=== PATIENT | female | born 1970 | race Two or more races ===

== ENCOUNTER 2020-07-15 09:25 | Outpatient (REF) | payer OTHER, SELFPAY ==
[2020-07-15 10:32] LABS: Cholesterol 150 mg/dL; HDL Cholesterol 54 mg/dL; LDL Cholesterol Calculated 80 mg/dl; Triglycerides 81 mg/dL
== END 2020-07-15 09:26 | disposition home or self-care (01) ==
LOC: HO.LAB 09:25
PROVIDERS: PCP Internal Medicine; Visit Provider Internal Medicine
DX: E78.00 Pure hypercholesterolemia, unspecified (principal); I10 Essential (primary) hypertension; Z91.14 Patient's other noncompliance with medication regimen
CPT/HCPCS: 80061

== ENCOUNTER 2020-08-23 12:00 | Outpatient (REF) | payer OTHER, SELFPAY ==
--- NOTE | 2020-08-23 | MM_ITS ---
EXAMINATION: MM SCREENING DIGITAL BREAST TOMOSYNTHESIS, BILATERAL CLINICAL INFORMATION: Screening. Asymptomatic. The lifetime risk of breast cancer based on the Tyrer-Cuzick Model is 11%. COMPARISON: Mammography: 01/01/2019, 12/19/2017 12/02/2016 TECHNIQUE: Digital breast tomosynthesis is performed in both the craniocaudal and mediolateral oblique views along with computer-aided detection (CAD). Synthesized 2D images are generated from the tomosynthesis. FINDINGS: There are scattered areas of fibroglandular density (ACR BI-RADS breast composition Category b). There are no significant masses, abnormal calcifications, or other abnormalities. The skin contours are smooth. No significant changes from prior studies. MM/MM tomosynthesis screening BI IMPRESSION: There are no significant changes from prior study. ASSESSMENT: BI-RADS 1: Negative RECOMMENDATION: Routine annual mammography screening. This patient's information was entered into a reminder system with a target due date for their next mammogram.
== END 2020-08-23 12:01 | disposition home or self-care (01) ==
LOC: HO.MAMMO 12:00
PROVIDERS: PCP Internal Medicine; Visit Provider Internal Medicine
DX: Z12.31 Encounter for screening mammogram for malignant neoplasm of breast (principal)
CPT/HCPCS: 77063; 77067

== ENCOUNTER 2021-05-22 10:50 | Outpatient (REF) | payer OTHER, SELFPAY ==
[2021-05-22 11:49] LABS: MANUAL DIFF FLAG NO
[2021-05-22 12:03] LABS: Basophils Percent Auto 0.3 % (0-2); Eosinophils Absolute Auto 0.2 X10*3/uL (0.0-0.4); Eosinophils Percent Auto 2.6 % (0-4); Hematocrit 40.5 % (37-47); Hemoglobin 13.3 g/dl (12.0-16.0); Imm Gran Abs Auto 0.03 X10*3/uL (0.00-0.03); Imm Gran Pct Auto 0.4 % (0.0-0.4); Lymphocytes Absolute Auto 1.8 X10*3/uL (1.2-4.9); Lymphocytes Percent Auto 26.2 % (20-40); Mean Corpuscular HGB Conc 32.8 g/dl (31.0-35.0); Mean Corpuscular Hemoglobin 29.2 pg (27.0-33.0); Mean Platelet Volume 9.3 fL (9.4-12.3); Monocytes Absolute Auto 0.6 X10*3/uL (0.1-1.2); Monocytes Percent Auto 8.8 % (2-11); Neutrophils Absolute Auto 4.2 X10*3/uL (2.0-8.3); Neutrophils Percent Auto 61.7 % (45-73); Platelet Count 340 X10*3/uL (160-400); Red Blood Count 4.55 X10*6/uL (4.20-5.50); Red Cell Distribution Width 14.6 % (11.0-16.0); White Blood Count 6.8 X10*3/uL (4.8-10.8)
[2021-05-22 12:11] LABS: Alanine Aminotransferase 26 U/L (0-31); Albumin Level 4.3 g/dL (3.5-5.0); Alkaline Phosphatase 59 U/L (39-117); Anion Gap 11 (12-20); Aspartate Amino Transferase 23 U/L (5-31); Blood Urea Nitrogen 10 mg/dL (9-16); Calcium 9.7 mg/dL (8.4-10.2); Carbon Dioxide 25 mmol/L (22-29); Chloride 104 mmol/L (96-108); Cholesterol 227 mg/dL; Estimated Glomerular Filt Rate > 60; Glucose Random 92 mg/dL (60-115); HDL Cholesterol 49 mg/dL; LDL Cholesterol Calculated 146 mg/dl; Potassium 4.6 mmol/L (3.3-5.1); Sodium 135 mmol/L (135-145); Total Protein 6.9 g/dL (6.5-8.0); Triglycerides 160 mg/dL
== END 2021-05-22 10:51 | disposition home or self-care (01) ==
LOC: HO.LAB 10:50
PROVIDERS: PCP Internal Medicine; Visit Provider Internal Medicine
DX: E78.00 Pure hypercholesterolemia, unspecified (principal); I10 Essential (primary) hypertension
CPT/HCPCS: 36415; 80053; 80061; 85025

== ENCOUNTER 2021-05-24 | Outpatient (REF) | payer OTHER, SELFPAY ==
[2021-06-01 20:52] LABS: HPV mRNA E6/E7 Not Detected (Not Detected)
== END 2021-05-24 00:01 | disposition home or self-care (01) ==
LOC: HO.LNP
PROVIDERS: Visit Provider Internal Medicine
DX: Z12.4 Encounter for screening for malignant neoplasm of cervix (principal)
CPT/HCPCS: 87624; 88142

== ENCOUNTER 2021-05-29 16:26 | Outpatient (REF) | payer OTHER, SELFPAY | END 2021-05-29 16:27 | disposition home or self-care (01) | LOC: HO.LNP 16:26 | PROVIDERS: Visit Provider Internal Medicine | DX: Z13.89 Encounter for screening for other disorder (principal) ==

== ENCOUNTER 2021-08-28 15:56 | Outpatient (REF) | payer OTHER, SELFPAY ==
--- NOTE | ~2021-08-28 | MM_ITS ---
EXAMINATION: MM SCREENING DIGITAL BREAST TOMOSYNTHESIS, BILATERAL CLINICAL INFORMATION: Screening. Asymptomatic. The lifetime risk of breast cancer based on the Tyrer-Cuzick Model is 10%. COMPARISON: Mammography: 08/23/2020, 01/01/2019, 12/19/2017 TECHNIQUE: Digital breast tomosynthesis is performed in both the craniocaudal and mediolateral oblique views along with computer-aided detection (CAD). Synthesized 2D images are generated from the tomosynthesis. Additional right CC and exaggerated left CC views are provided. FINDINGS: There are scattered areas of fibroglandular density (ACR BI-RADS breast composition Category b). There is fine fibronodular parenchymal pattern similar to prior studies. No interval mass or architectural abnormality or abnormal calcifications. No developing density. The axilla and skin contours are unremarkable. No significant changes. MM/MM tomosynthesis screening BI IMPRESSION: No mammographic evidence of malignancy. ASSESSMENT: BI-RADS 1: Negative RECOMMENDATION: Routine annual mammography screening. This patient's information was entered into a reminder system with a target due date for their next mammogram.
== END 2021-08-28 15:57 | disposition home or self-care (01) ==
LOC: HO.MAMMO 15:56
PROVIDERS: Visit Provider Internal Medicine
DX: Z12.31 Encounter for screening mammogram for malignant neoplasm of breast (principal)
CPT/HCPCS: 77063; 77067

== ENCOUNTER 2021-10-01 11:29 | Outpatient (REF) | payer OTHER, SELFPAY ==
[2021-10-01 11:50] LABS: MANUAL DIFF FLAG NO
[2021-10-01 12:18] LABS: Basophils Percent Auto 0.3 % (0-2); Eosinophils Absolute Auto 0.3 X10*3/uL (0.0-0.4); Eosinophils Percent Auto 4.2 % (0-4); Hematocrit 41.4 % (37.0-47.0); Hemoglobin 13.4 g/dl (12.0-16.0); Imm Gran Abs Auto 0.03 X10*3/uL (0.00-0.03); Imm Gran Pct Auto 0.4 % (0.0-0.4); Lymphocytes Absolute Auto 2.4 X10*3/uL (1.2-4.9); Lymphocytes Percent Auto 32.4 % (20-40); Mean Corpuscular HGB Conc 32.4 g/dl (31.0-35.0); Mean Corpuscular Hemoglobin 29.6 pg (27.0-33.0); Mean Corpuscular Volume 91.6 fL (80.0-98.0); Mean Platelet Volume 8.7 fL (9.4-12.3); Monocytes Absolute Auto 0.7 X10*3/uL (0.1-1.2); Monocytes Percent Auto 9.3 % (2-11); Neutrophils Percent Auto 53.4 % (45-73); Platelet Count 381 X10*3/uL (160-400); Red Blood Count 4.52 X10*6/uL (4.20-5.50); Red Cell Distribution Width 14.6 % (11.0-16.0); White Blood Count 7.4 X10*3/uL (4.8-10.8)
[2021-10-01 12:43] LABS: Alanine Aminotransferase 27 U/L (0-31); Albumin Level 4.3 g/dL (3.5-5.0); Alkaline Phosphatase 59 U/L (39-117); Anion Gap 13 (12-20); Aspartate Amino Transferase 21 U/L (5-31); Bilirubin Total 0.8 mg/dL (0.0-1.0); Blood Urea Nitrogen 16 mg/dL (9-16); Calcium 9.7 mg/dL (8.4-10.2); Carbon Dioxide 25 mmol/L (22-29); Chloride 103 mmol/L (96-108); Cholesterol 251 mg/dL; Estimated Glomerular Filt Rate > 60; Glucose Random 85 mg/dL (60-115); HDL Cholesterol 47 mg/dL; LDL Cholesterol Calculated 176 mg/dl; Potassium 4.6 mmol/L (3.3-5.1); Sodium 136 mmol/L (135-145); Total Protein 7.4 g/dL (6.5-8.0); Triglycerides 143 mg/dL
[2021-10-01 13:04] LABS: Thyroid Stimulating Hormone 2.22 uIU/mL (0.32-4.0)
== END 2021-10-01 11:30 | disposition home or self-care (01) ==
LOC: HO.LAB 11:29
PROVIDERS: PCP Internal Medicine; Visit Provider Internal Medicine
DX: Z00.00 Encounter for general adult medical examination without abnormal findings (principal); E78.00 Pure hypercholesterolemia, unspecified; I10 Essential (primary) hypertension
CPT/HCPCS: 36415; 80053; 80061; 84443; 85025

== ENCOUNTER 2021-10-09 07:04 | Day surgery (SDC) | payer OTHER, SELFPAY ==
--- NOTE | 2021-10-08 10:30 | HO.ANESPROP2 ---
Documented by User: Natalie Noel NP 10/08/21 10:33 HPI - Anesthesia Eval Consult details Narrative: 50yo F for Colonoscopy FOR[facility]LY [facility] Past Medical History Medical History (Updated 10/08/21 @ 09:19 by Maia Cameron, RN) Elevated cholesterol History of neuropathy HTN (hypertension) Surgical History Surgical History Hx of tubal ligation Social History Social History Second Hand Smoke Exposure: No Use of substances other than those prescribed or required for medical reasons: No Are you DNR?: No Advance Directives: No Advance Directives Information Provided: Yes Advance Directives on File: No Patient : No Meds Allergies Allergy/AdvReac Type Severity Reaction Status Date / Time No Known Allergies Allergy Verified 10/08/21 09:21 Home Medications Medication Instructions Recorded Confirmed Last Taken Type lisinopril 20 1 tab PO DAILY 10/08/21 10/08/21 10/09/21 History mg-hydrochlorothiazide 25 mg tablet rosuvastatin 40 mg tablet 1 tab PO DAILY 10/08/21 10/08/21 Unknown History Exam Exam Date and Time: October 08, 2021 1030 Pertinent Lab Results Pertinent Lab Results: Laboratory Tests 10/01/21 10/01/21 11:48 11:48 WBC 7.4 Hgb 13.4 Hct 41.4 Plt Count 381 Sodium 136 Potassium 4.6 Chloride 103 Carbon Dioxide 25 BUN 16 Creatinine 0.77 Assessment and Plan Assessment Anesthesia Assessment: Chart Reviewed Documented by User: Jenna Hernandez MD 10/09/21 08:21 [facility] Past Medical History Medical History (Updated 10/08/21 @ 09:19 by Maia Cameron RN) Elevated cholesterol History of neuropathy HTN (hypertension) Functional capacity: independent ambulation Patient : No Family History Family history of problems with anesthesia: No Surgical History Surgical History Hx of tubal ligation History of Problems with Anesthesia: No Social History Social History Second Hand Smoke Exposure: No Use of substances other than those prescribed or required for medical reasons: No Are you DNR?: No Advance Directives: No Advance Directives Information Provided: Yes Advance Directives on File: No Patient : No Meds Allergies Allergy/AdvReac Type Severity Reaction Status Date / Time No Known Allergies Allergy Verified 10/08/21 09:21 Home Medications Medication Instructions Recorded Confirmed Last Taken Type lisinopril 20 1 tab PO DAILY 10/08/21 10/08/21 10/09/21 History mg-hydrochlorothiazide 25 mg tablet rosuvastatin 40 mg tablet 1 tab PO DAILY 10/08/21 10/08/21 Unknown History Exam Airway Mallampati Class: II TM Dist: >3cm Neck ROM: Full Heart: RRR Lungs: CTA Assessment and Plan Final Anesthetic Review Family History of Problems with Anesthesia: No History of Problems with Anesthesia: No Final Preanesthetic Review: No Changes in Pt Med Stat, Meds/Allgs Chart Reviewed, Consent Obtained/Reviewed and Anes Risks/Benef Reviewed Patient Risk: Low Procedure Risk: Low Anesthetic Plan Anesthetic Plan: MAC: Disposition: Standard PACU
[2021-10-09 07:14] VITALS: BMI 37.0
[2021-10-09 07:23] VITALS: BP 131/78; PULSE 72; RESP 16; TEMP 36.4; O2SAT 98
[2021-10-09] MEDS: Lactated Ringers 1,000 ML 100 ML IVCONT (07:30)
--- NOTE | 2021-10-09 08:22 | MHC.SHP ---
Pre-Procedural Eval Section A Date of Service: 10/09/21 The patient is an INPATIENT: No Changes since office visit: No Cold of Flu in the past 2 weeks, No New Medical Problems, No Changes in Medication and No Patient answered all questions The History & Physical has been completed within 30 days and I have reviewed it.: Yes Section B Chief Complaint: screening Allergies: Allergies Allergy/AdvReac Type Severity Reaction Status Date / Time No Known Allergies Allergy Verified 10/08/21 09:21 Plan I have reviewed the history and physical and performed a pertinent physical examination on my patient. No changes have occurred unless specified.
--- NOTE | 2021-10-09 08:51 | PM.OP ---
Brief Operative Note Date of Service: 10/09/21 Pre-op diagnosis: screening Post-op diagnosis: same (colon polyps) Procedure: colonoscopy Surgeon: Johan Lacy Anesthesia: MAC Was an Communication Assistant used for this Procedure?: No Estimated blood loss (mL): 2 Pathology: other (polyps x2) Condition: stable Disposition: PACU
[2021-10-09 08:54] VITALS: BP 111/58; PULSE 71; RESP 16; TEMP 36.3; O2SAT 98
[2021-10-09 09:09] VITALS: BP 120/73; PULSE 55; RESP 18; TEMP 36.2; O2SAT 99
--- NOTE | 2021-10-09 09:10 | OP_ITS ---
SURGEON: Johan Lacy MD INDICATIONS: Colon cancer screening. PREOPERATIVE DIAGNOSIS: POSTOPERATIVE DIAGNOSIS: PROCEDURE PERFORMED: Colonoscopy to the terminal ileum with biopsy and snare polypectomy. ESTIMATED BLOOD LOSS: COMPLICATIONS: ANESTHESIA: ASSISTANTS: SPECIMENS: MEDICATIONS: Monitored anesthesia care. DESCRIPTION OF PROCEDURE: History and physical performed. The risks and benefits of the procedure were explained to the patient. An informed consent was obtained. The patient was placed in the left lateral decubitus position. A digital rectal exam was performed and was found to be normal. The Olympus pediatric video colonoscope was introduced into the rectum and advanced to the cecum without difficulty. The cecum was identified by transillumination, palpation, and identification of ileocecal valve. Examination was performed. The scope was removed. She tolerated the procedure well and was returned to recovery in stable condition. FINDINGS: The terminal ileum was examined and appeared normal. The visualized colonic mucosa was normal. The quality of prep was good. Two polyps were identified and removed with biopsy forceps and a snare. The 1st was located in the right colon at about 80 cm and was removed with a biopsy forceps. The 2nd was located in the sigmoid at 30 cm and measured approximately 8 mm. This was removed with a snare and recovered via suction. Internal hemorrhoids were noted on retroflexed examination. No other polyps were identified. IMPRESSION: Colon polyps. RECOMMENDATION: Follow up the biopsy results. MD ANGEL Roy/NURA / [id number]
--- NOTE | 2021-10-09 09:54 | HO.POSTANES ---
Post Anesthesia Evaluation Post Anesthesia Evaluation Vital Signs: Vital Signs Temp Pulse Resp BP Pulse Ox 10/09/21 09:09 97.1 F 55 18 120/73 99 10/09/21 08:54 97.3 F 71 16 111/58 L 98 10/09/21 07:23 97.6 F 72 16 131/78 98 Anesthesia: Monitored Mental Status: Awake Pain Control: Satisfactory Nausea/Vomiting: None Hydration: Adequate Anesthesia-Related Issues: No Anes. Related Issues
== END 2021-10-09 09:49 | disposition home or self-care (01) ==
PROVIDERS: PCP Internal Medicine; Visit Provider Internal Medicine Gastroenterology
PROC: 0DJD8ZZ Inspection of Lower Intestinal Tract, Via Natural or Artificial Opening Endoscopic (ICD-10-PCS; CPT 45378; principal; 2021-10-09 08:20)
DX: Z12.11 Encounter for screening for malignant neoplasm of colon (principal); K63.5 Polyp of colon; K64.8 Other hemorrhoids; I10 Essential (primary) hypertension; E78.00 Pure hypercholesterolemia, unspecified; G62.89 Other specified polyneuropathies; Z79.899 Other long term (current) drug therapy
CPT/HCPCS: 45385; 45380; 88305

== ENCOUNTER 2022-01-03 07:16 | Outpatient (REF) | payer OTHER, SELFPAY ==
[2022-01-03 07:59] LABS: Alanine Aminotransferase 29 U/L (0-31); Albumin Level 4.2 g/dL (3.5-5.0); Alkaline Phosphatase 58 U/L (39-117); Anion Gap 10 (12-20); Aspartate Amino Transferase 27 U/L (5-31); Bilirubin Total 0.8 mg/dL (0.0-1.0); Blood Urea Nitrogen 14 mg/dL (9-16); Calcium 9.8 mg/dL (8.4-10.2); Carbon Dioxide 28 mmol/L (22-29); Chloride 104 mmol/L (96-108); Cholesterol 148 mg/dL; Estimated Glomerular Filt Rate > 60; Glucose Random 94 mg/dL (60-115); HDL Cholesterol 51 mg/dL; LDL Cholesterol Calculated 64 mg/dl; Potassium 4.6 mmol/L (3.3-5.1); Sodium 137 mmol/L (135-145); Total Protein 7.1 g/dL (6.5-8.0); Triglycerides 166 mg/dL
== END 2022-01-03 07:17 | disposition home or self-care (01) ==
LOC: HO.LAB 07:16
PROVIDERS: PCP Internal Medicine; Visit Provider Internal Medicine
DX: E78.00 Pure hypercholesterolemia, unspecified (principal); I10 Essential (primary) hypertension; M79.18 Myalgia, other site
CPT/HCPCS: 36415; 80053; 80061

== ENCOUNTER 2022-09-13 13:23 | Outpatient (REF) | payer OTHER, SELFPAY ==
--- NOTE | ~2022-09-13 | MM_ITS ---
EXAMINATION: MM SCREENING DIGITAL BREAST TOMOSYNTHESIS, BILATERAL CLINICAL INFORMATION: Screening. Asymptomatic. The lifetime risk of breast cancer based on the Tyrer-Cuzick Model is 10%. COMPARISON: Mammography: 08/28/2021, 08/23/2020, 01/01/2019 TECHNIQUE: Digital breast tomosynthesis is performed in both the craniocaudal and mediolateral oblique views along with computer-aided detection (CAD). Synthesized 2D images are generated from the tomosynthesis. FINDINGS: There are scattered areas of fibroglandular density (ACR BI-RADS breast composition Category b). There is fine fibronodular parenchymal pattern similar to prior studies. There is no developing density or interval significant mass or architectural abnormality. The axilla and skin contours are unremarkable. No abnormal calcifications on the right. The left breast has new grouped calcifications mid upper outer quadrant, possibly fibroadenomatous change. Patient will be recalled for additional magnification views to fully characterize. MM/MM tomosynthesis screening BI IMPRESSION: Left: -New grouped calcifications mid upper outer quadrant. Right: -No mammographic evidence of malignancy. ASSESSMENT: BI-RADS 0: Incomplete - Need Additional Imaging Evaluation RECOMMENDATION: 1. Additional views of the left breast (magnification CC, magnification ML). 2. Radiology department staff will contact the patient for additional imaging. This patient's information was entered into a reminder system with a target due date for their next mammogram.
== END 2022-09-13 13:24 | disposition home or self-care (01) ==
LOC: HO.MAMMO 13:23
PROVIDERS: PCP Internal Medicine; Visit Provider Internal Medicine
DX: Z12.31 Encounter for screening mammogram for malignant neoplasm of breast (principal)
CPT/HCPCS: 77063; 77067

== ENCOUNTER 2022-09-19 13:42 | Outpatient (REF) | payer OTHER, SELFPAY ==
--- NOTE | ~2022-09-19 | MM_ITS ---
EXAMINATION: MM DIAGNOSTIC DIGITAL MAMMOGRAPHY, LEFT CLINICAL INFORMATION: Recall from screening for new grouped calcifications mid upper outer quadrant left breast. TC score 10%. COMPARISON: Mammography: 09/13/2022, 08/28/2021 TECHNIQUE: Digital mammography is performed in the following views: Magnification CC, magnification ML x2 FINDINGS: There are scattered areas of fibroglandular density (ACR BI-RADS breast composition Category b). The magnification views show tightly grouped round calcifications mid upper outer breast. These vary in size. No irregular shapes or ductal distribution. Results are discussed with the patient at time of visit. Calcifications are probably benign. Short interval follow-up left mammography is recommended to include magnification views. MM/MM added views LT IMPRESSION: -Probable benign grouped calcifications mid upper outer left breast. ASSESSMENT: BI-RADS 3: Probably Benign RECOMMENDATION: Diagnostic left mammography in 6 months. This patient's information was entered into a reminder system with a target due date for their next mammogram.
== END 2022-09-19 13:43 | disposition home or self-care (01) ==
LOC: HO.MAMMO 13:42
PROVIDERS: Visit Provider Internal Medicine
DX: R92.1 Mammographic calcification found on diagnostic imaging of breast (principal)
CPT/HCPCS: 77065

== ENCOUNTER 2023-01-13 07:14 | Outpatient (REF) | payer OTHER, SELFPAY ==
[2023-01-13 07:59] LABS: Hematocrit 40.8 % (37.0-47.0); Hemoglobin 13.3 g/dl (12.0-16.0); Mean Corpuscular HGB Conc 32.6 g/dl (31.0-35.0); Mean Corpuscular Hemoglobin 29.2 pg (27.0-33.0); Mean Corpuscular Volume 89.7 fL (80.0-98.0); Mean Platelet Volume 8.3 fL (9.4-12.3); Platelet Count 423 X10*3/uL (160-400); Red Blood Count 4.55 X10*6/uL (4.20-5.50); Red Cell Distribution Width 14.3 % (11.0-16.0); White Blood Count 10.3 X10*3/uL (4.8-10.8)
[2023-01-13 08:10] LABS: Estimated Average Glucose 111 mg/dL; Hemoglobin A1c % 5.5 %
[2023-01-13 08:29] LABS: SLIDE REVIEW MANUAL DIFF
[2023-01-13 08:41] LABS: Alanine Aminotransferase 28 U/L (0-31); Albumin Level 4.1 g/dL (3.5-5.0); Alkaline Phosphatase 71 U/L (39-117); Anion Gap 13 (12-20); Aspartate Amino Transferase 17 U/L (5-31); Bilirubin Total 0.7 mg/dL (0.0-1.0); Blood Urea Nitrogen 8 mg/dL (9-16); Calcium 9.6 mg/dL (8.4-10.2); Carbon Dioxide 26 mmol/L (22-29); Chloride 103 mmol/L (96-108); Cholesterol 128 mg/dL; Estimated Glomerular Filt Rate > 60; Glucose Random 96 mg/dL (60-115); HDL Cholesterol 37 mg/dL; LDL Cholesterol Calculated 68 mg/dl; Potassium 4.8 mmol/L (3.3-5.1); Sodium 137 mmol/L (135-145); Triglycerides 116 mg/dL
[2023-01-13 08:49] LABS: Atypical Lymph Absolute Manual 0.5 x10*3/uL; Atypical Lymphs Percent Manual 5 % (0-6); Band Neutrophils Percent 7 % (3-5); Basophils Abs Manual 0.1 X10*3/uL (0.0-0.2); Basophils Percent Manual 1 % (0-2); Blast Percent 1 %; Blastocytes Absolute 0.1 X10*3/uL; Eosinophils Absolute Manual 0.5 X10*3/uL (0.0-0.4); Eosinophils Percent Manual 5 % (0-4); Lymphocytes Percent Manual 19 % (20-40); Metamyelocytes Absolute 0.1 X10*3/uL; Metamyelocytes Percent 1 %; Monocytes Absolute Manual 0.2 X10*3/uL (0.1-1.2); Monocytes Percent Manual 2 % (2-11); Neutrophils Absolute Manual 6.8 X10*3/uL (2.0-8.3); Neutrophils Percent Manual 59 % (45-73)
[2023-01-13 09:08] LABS: RBC Morphology NORMAL
[2023-01-13 09:09] LABS: Platelet Estimate NORMAL (NORMAL)
[2023-01-13 09:10] LABS: Large Platelet PRESENT; Platelet Morphology Comment NOTED
== END 2023-01-13 07:15 | disposition home or self-care (01) ==
LOC: HO.LAB 07:14
PROVIDERS: PCP Internal Medicine; Visit Provider Internal Medicine
DX: Z00.00 Encounter for general adult medical examination without abnormal findings (principal); E78.00 Pure hypercholesterolemia, unspecified; N92.1 Excessive and frequent menstruation with irregular cycle; I10 Essential (primary) hypertension
CPT/HCPCS: 36415; 80053; 80061; 83036; 84443; 85007; 85025; 85027

== ENCOUNTER → 2023-02-24 10:26 | Outpatient (BNV) | payer OTHER, SELFPAY | PROVIDERS: PCP Internal Medicine; Visit Provider Internal Medicine Medical Oncology | DX: D75.839 Thrombocytosis, unspecified (principal) | CPT/HCPCS: 99203; 99213 ==

== ENCOUNTER 2023-04-21 12:55 | Outpatient (REF) | payer OTHER, SELFPAY ==
--- NOTE | ~2023-04-21 | MM_ITS ---
EXAMINATION: MM DIAGNOSTIC DIGITAL BREAST TOMOSYNTHESIS, LEFT CLINICAL INFORMATION: Evaluate calcifications upper outer left breast, middle one third. The lifetime risk of breast cancer based on the Tyrer-Cuzick Model is 10.6%. COMPARISON: Mammography: 09/13/2022, 08/28/2021, 08/23/2028. TECHNIQUE: Digital breast tomosynthesis is performed in both the craniocaudal and mediolateral oblique views along with computer-aided detection (CAD). Synthesized 2D images are generated from the tomosynthesis. In addition 2-D spot magnification CC and ML views of the left breast were performed. FINDINGS: There are scattered areas of fibroglandular density (ACR BI-RADS breast composition Category b). Grouped calcifications in the left breast, upper outer quadrant, middle one third, have become significantly more coarsened and round since the prior examination, and are consistent with dystrophic calcifications (fat necrosis, oil cysts). There has been no suspicious change. The overall somewhat nodular parenchymal pattern of the left breast is stable from numerous priors. No masses or areas of architectural distortion. Results are provided to the patient at time of visit by the technologist. MM/MM tomosynthesis diagnostic LT IMPRESSION: No mammographic evidence of malignancy. Calcifications upper outer left breast have become dystrophic in morphology and are benign. ASSESSMENT: BI-RADS BI-RADS 2 - Benign Findings RECOMMENDATION: 1 year F/U This patient's information was entered into a reminder system with a target due date for their next mammogram.
== END 2023-04-21 12:56 | disposition home or self-care (01) ==
LOC: HO.MAMMO 12:55
PROVIDERS: PCP Internal Medicine; Visit Provider Internal Medicine
DX: R92.1 Mammographic calcification found on diagnostic imaging of breast (principal)
CPT/HCPCS: 77061; 77065

== ENCOUNTER → 2023-04-21 13:00 | Outpatient (BNV) | payer OTHER, SELFPAY | PROVIDERS: PCP Internal Medicine; Visit Provider Radiology Diagnostic Radiology | DX: R92.1 Mammographic calcification found on diagnostic imaging of breast (principal) | CPT/HCPCS: 77061; 77065 ==

== ENCOUNTER 2023-07-14 07:04 | Outpatient (REF) | payer OTHER, SELFPAY ==
[2023-07-14 07:18] LABS: MANUAL DIFF FLAG NO
[2023-07-14 07:37] LABS: Basophils Percent Auto 0.5 % (0-2); Eosinophils Absolute Auto 0.2 X10*3/uL (0.0-0.4); Eosinophils Percent Auto 2.7 % (0-4); Hematocrit 42.7 % (37.0-47.0); Imm Gran Abs Auto 0.03 X10*3/uL (0.00-0.03); Imm Gran Pct Auto 0.4 % (0.0-0.4); Lymphocytes Absolute Auto 2.6 X10*3/uL (1.2-4.9); Mean Corpuscular HGB Conc 32.8 g/dl (31.0-35.0); Mean Corpuscular Hemoglobin 28.9 pg (27.0-33.0); Mean Corpuscular Volume 88.2 fL (80.0-98.0); Mean Platelet Volume 8.7 fL (9.4-12.3); Monocytes Absolute Auto 0.7 X10*3/uL (0.1-1.2); Monocytes Percent Auto 8.8 % (2-11); Neutrophils Absolute Auto 4.7 x10*3/uL (2.0-8.3); Neutrophils Percent Auto 56.6 % (45-73); Platelet Count 361 X10*3/uL (160-400); Red Blood Count 4.84 X10*6/uL (4.20-5.50); Red Cell Distribution Width 14.6 % (11.0-16.0); White Blood Count 8.3 X10*3/uL (4.8-10.8)
[2023-07-14 08:36] LABS: Alanine Aminotransferase 29 U/L (0-31); Albumin Level 4.4 g/dL (3.5-5.0); Alkaline Phosphatase 69 U/L (39-117); Anion Gap 13 (12-20); Aspartate Amino Transferase 24 U/L (5-31); Bilirubin Total 0.9 mg/dL (0.0-1.0); Blood Urea Nitrogen 13 mg/dL (9-16); Carbon Dioxide 27 mmol/L (22-29); Chloride 103 mmol/L (96-108); Estimated Glomerular Filt Rate > 60; Glucose Random 103 mg/dL (60-115); Potassium 4.6 mmol/L (3.3-5.1); Sodium 138 mmol/L (135-145); Total Protein 7.7 g/dL (6.5-8.0)
== END 2023-07-14 07:05 | disposition home or self-care (01) ==
LOC: HO.LAB 07:04
PROVIDERS: PCP Internal Medicine; Visit Provider Internal Medicine
DX: E78.00 Pure hypercholesterolemia, unspecified (principal); J30.89 Other allergic rhinitis; R71.8 Other abnormality of red blood cells; R92.8 Other abnormal and inconclusive findings on diagnostic imaging of breast; I10 Essential (primary) hypertension
CPT/HCPCS: 36415; 80053; 85025

== ENCOUNTER 2023-09-15 12:13 | Outpatient (REF) | payer OTHER, SELFPAY ==
--- NOTE | ~2023-09-15 | MM_ITS ---
EXAMINATION: MM SCREENING DIGITAL BREAST TOMOSYNTHESIS, BILATERAL CLINICAL INFORMATION: Screening. Asymptomatic. COMPARISON: Mammography: This study is compared with prior exams dating back to 2019. TECHNIQUE: Digital breast tomosynthesis is performed in both the craniocaudal and mediolateral oblique views along with computer-aided detection (CAD). Synthesized 2D images are generated from the tomosynthesis. FINDINGS: There are scattered areas of fibroglandular density (ACR BI-RADS breast composition Category b). There are no significant masses, abnormal calcifications, or other abnormalities. There are coarsening, benign calcifications in the upper outer quadrant of the left breast. MM/MM tomosynthesis screening BI IMPRESSION: No mammographic evidence of malignancy. ASSESSMENT: BI-RADS BI-RADS 2 - Benign Findings RECOMMENDATION: Routine annual mammography screening. 1 year F/U This examination should not preclude the clinical evaluation of a suspicious palpable abnormality. This patient's information was entered into a reminder system with a target due date for their next mammogram.
== END 2023-09-15 12:14 | disposition home or self-care (01) ==
LOC: HO.MAMMO 12:13
PROVIDERS: PCP Internal Medicine; Visit Provider Internal Medicine
DX: Z12.31 Encounter for screening mammogram for malignant neoplasm of breast (principal)
CPT/HCPCS: 77063; 77067

== ENCOUNTER → 2023-09-15 13:15 | Outpatient (BNV) | payer OTHER, SELFPAY | PROVIDERS: PCP Internal Medicine; Visit Provider Radiology Diagnostic Radiology | DX: Z12.31 Encounter for screening mammogram for malignant neoplasm of breast (principal) | CPT/HCPCS: 77063; 77067 ==

== ENCOUNTER 2024-01-12 07:33 | Outpatient (REF) | payer OTHER, SELFPAY ==
[2024-01-12 08:49] LABS: Alanine Aminotransferase 23 U/L (0-31); Albumin Level 4.1 g/dL (3.5-5.0); Alkaline Phosphatase 59 U/L (39-117); Anion Gap 12 (12-20); Aspartate Amino Transferase 18 U/L (5-31); Bilirubin Total 0.4 mg/dL (0.0-1.0); Blood Urea Nitrogen 14 mg/dL (9-16); Calcium 9.7 mg/dL (8.4-10.2); Carbon Dioxide 26 mmol/L (22-29); Chloride 105 mmol/L (96-108); Estimated Glomerular Filt Rate > 60; Glucose Random 96 mg/dL (60-115); Potassium 4.2 mmol/L (3.3-5.1); Sodium 139 mmol/L (135-145); Total Protein 7.2 g/dL (6.5-8.0)
== END 2024-01-12 07:34 | disposition home or self-care (01) ==
LOC: HO.LAB 07:33
PROVIDERS: PCP Internal Medicine; Visit Provider Internal Medicine
DX: Z00.00 Encounter for general adult medical examination without abnormal findings (principal); E78.00 Pure hypercholesterolemia, unspecified; I10 Essential (primary) hypertension; Z68.41 Body mass index [BMI] 40.0-44.9, adult; E66.9 Obesity, unspecified
CPT/HCPCS: 36415; 80053

== ENCOUNTER 2024-08-04 07:47 | Outpatient (REF) | payer OTHER, SELFPAY ==
[2024-08-04 08:01] LABS: MANUAL DIFF FLAG NO
[2024-08-04 09:03] LABS: Basophils Percent Auto 0.3 % (0-2); Eosinophils Absolute Auto 0.4 X10*3/uL (0.0-0.4); Eosinophils Percent Auto 4.8 % (0-4); Hematocrit 42.8 % (37.0-47.0); Imm Gran Abs Auto 0.03 X10*3/uL (0.00-0.03); Imm Gran Pct Auto 0.3 % (0.0-0.4); Lymphocytes Absolute Auto 1.9 X10*3/uL (1.2-4.9); Lymphocytes Percent Auto 21.7 % (20-40); Mean Corpuscular HGB Conc 32.7 g/dl (31.0-35.0); Mean Corpuscular Hemoglobin 29.3 pg (27.0-33.0); Mean Corpuscular Volume 89.5 fL (80.0-98.0); Mean Platelet Volume 8.9 fL (9.4-12.3); Monocytes Absolute Auto 0.8 X10*3/uL (0.1-1.2); Monocytes Percent Auto 8.6 % (2-11); Neutrophils Absolute Auto 5.6 x10*3/uL (2.0-8.3); Neutrophils Percent Auto 64.3 % (45-73); Platelet Count 367 X10*3/uL (160-400); Red Blood Count 4.78 X10*6/uL (4.20-5.50); Red Cell Distribution Width 14.2 % (11.0-16.0); White Blood Count 8.7 X10*3/uL (4.8-10.8)
[2024-08-04 09:52] LABS: Alanine Aminotransferase 41 U/L (0-31); Albumin Level 4.5 g/dL (3.5-5.0); Alkaline Phosphatase 66 U/L (39-117); Anion Gap 17 (12-20); Aspartate Amino Transferase 30 U/L (5-31); Blood Urea Nitrogen 17 mg/dL (9-16); Calcium 9.8 mg/dL (8.4-10.2); Carbon Dioxide 25 mmol/L (22-29); Chloride 102 mmol/L (96-108); Cholesterol 140 mg/dL (<200); Estimated Glomerular Filt Rate > 60; Glucose Random 94 mg/dL (60-115); HDL Cholesterol 56 mg/dL (>40); LDL Cholesterol Calculated 65 mg/dL (<100); Potassium 4.3 mmol/L (3.3-5.1); Sodium 140 mmol/L (135-145); Total Protein 7.6 g/dL (6.5-8.0); Triglycerides 95 mg/dL (<150)
== END 2024-08-04 07:48 | disposition home or self-care (01) ==
LOC: HO.LAB 07:47
PROVIDERS: PCP Internal Medicine; Visit Provider Internal Medicine
DX: I10 Essential (primary) hypertension (principal); E78.00 Pure hypercholesterolemia, unspecified; E66.01 Morbid (severe) obesity due to excess calories; D75.838 Other thrombocytosis
CPT/HCPCS: 36415; 80053; 80061; 85025

== ENCOUNTER 2024-09-20 11:58 | Outpatient (REF) | payer OTHER, SELFPAY | END 2024-09-20 11:59 | disposition home or self-care (01) | LOC: HO.MAMMO 11:58 | PROVIDERS: PCP Internal Medicine; Visit Provider Internal Medicine | DX: Z12.31 Encounter for screening mammogram for malignant neoplasm of breast (principal) | CPT/HCPCS: 77063; 77067 ==

== ENCOUNTER → 2024-09-20 12:15 | Outpatient (BNV) | payer OTHER, SELFPAY | PROVIDERS: PCP Internal Medicine; Visit Provider Internal Medicine | DX: Z12.31 Encounter for screening mammogram for malignant neoplasm of breast (principal) | CPT/HCPCS: 77063; 77067 ==

== ENCOUNTER 2025-02-25 08:11 | Outpatient (REF) | payer OTHER, SELFPAY ==
--- OUTSIDE RECORDS SUMMARY | 2025-02-25 08:17 | XMS_ITS | Patient Health Record ---
Author Organization [facility] Address [address] [place] [id number] Care Team Providers Care Instructional Writer Name Role Phone Ivy Smith Primary Care Provider Unavailab Johan Marte Jr Unavailable Allergies No Known Allergies Reason For Referral No Information Medications Medication SIG (Take, Route, Frequency, Duration) Notes Start Date End Date Status Rosuvastatin Calcium 40 MG TAKE 1 TABLET BY MOUTH EVERY DAY Oral for 30 Active Lisinopril-hydroCHLOROthiaz pino 20-25 MG TAKE 1 TABLET BY MOUTH DAILY Oral for 30 Active MiraLax (colon prep) 17 GM/SCOOP mixed with Gatorade or Crystal Light Orally begin at 5:00 p.m. the day before the procedure for 1 day 09/13/2021 Active Immunizations Vaccine Route Administration Date Status Comme nts Influenza Unknown 07/26/2021 Administered Influenza Unknown 07/26/2021 Administered Social History Tobacco Use: Social History Observation Description Date Details (start date - stop date) Never Smoker NA - NA Tobacco Use/Smoking Question Answer Notes Patient is a nonsmoker Alcohol Screen Question Answer Notes Did you have a drink contain ing alcohol in the past year? Yes How often did you have a dri nk containing alcohol in the past year? Never (0 point) How many drinks did you have on a typical day when you were drinking in the past year? 1 or 2 drinks (0 point) How often did you have 6 or more drinks on one occasion in the past year? Never (0 point) Points 0 Interpretation Negative Problems Problem Type SNOMED Code ICD Code Onset Dates Problem Status W/U Status Risk Notes Problem 814213309 Colon cancer screening (Z12.11) Active confirmed Problem 727254811 Encounter for other preprocedural examination (Z01.818) Active confirmed Plan Of Treatment Future Test Test Name Order Date COLONOSCOPY 09/13/2021 Insurance Providers Payer Name Payer Address Payer Phone Subscriber Number Group Number Insured Name Patient Relationship to Insured Coverage Start Date Coverage End Date [facility] [address] [place] [phone] [id number] [id number] [id number] Self - patient is the insured Medical (General) History Medical History History ICD Code hypertension hypercholesterolemia Acute axonal neuropathy,? 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 Surgical History Surgery Date(Month/Year) tubal ligation
[2025-02-25 10:32] LABS: Alanine Aminotransferase 33 U/L (0-31); Albumin Level 4.5 g/dL (3.5-5.0); Alkaline Phosphatase 62 U/L (39-117); Anion Gap 11 (12-20); Aspartate Amino Transferase 33 U/L (5-31); Blood Urea Nitrogen 17 mg/dL (9-16); Calcium 9.5 mg/dL (8.4-10.2); Carbon Dioxide 27 mmol/L (22-29); Chloride 104 mmol/L (96-108); Estimated Glomerular Filt Rate > 60; Glucose Random 87 mg/dL (60-115); Potassium 3.8 mmol/L (3.3-5.1); Sodium 138 mmol/L (135-145); Total Protein 7.2 g/dL (6.5-8.0)
== END 2025-02-25 08:12 | disposition home or self-care (01) ==
LOC: HO.LAB 08:11
PROVIDERS: PCP Internal Medicine; Visit Provider Internal Medicine
DX: Z00.00 Encounter for general adult medical examination without abnormal findings (principal); I10 Essential (primary) hypertension; E78.00 Pure hypercholesterolemia, unspecified; Z68.41 Body mass index [BMI] 40.0-44.9, adult
CPT/HCPCS: 36415; 80053

== ENCOUNTER 2025-09-06 07:05 | Outpatient (REF) | payer OTHER, SELFPAY ==
[2025-09-06 07:15] LABS: MANUAL DIFF FLAG NO
[2025-09-06 08:01] LABS: Hematocrit 41.9 % (37.0-47.0); Hemoglobin 13.7 g/dl (12.0-16.0); Imm Gran Abs Auto 0.02 X10*3/uL (0.00-0.03); Imm Gran Pct Auto 0.3 % (0.0-0.4); Lymphocytes Absolute Auto 2.3 X10*3/uL (1.2-4.9); Mean Corpuscular HGB Conc 32.7 g/dl (31.0-35.0); Mean Corpuscular Hemoglobin 29.2 pg (27.0-33.0); Mean Corpuscular Volume 89.3 fL (80.0-98.0); NRBC Abs Auto 0.000 X10*3/uL (0.0-0.012); NRBC Pct Auto 0.0 /100WBC (0.0-0.2); Platelet Count 372 X10*3/uL (160-400); Red Blood Count 4.69 X10*6/uL (4.20-5.50); White Blood Count 6.8 X10*3/uL (4.8-10.8)
--- OUTSIDE RECORDS SUMMARY | 2025-09-06 08:51 | XMS_ITS | Patient Health Record ---
Author Organization [facility] Address [address] [place] [id number] Care Team Providers Care Merchandising Stock Associate Name Role Phone EverardoAmmon walkernima Primary Care Provider Unavailab Johan Marte Jr Unavailable Allergies No Known Allergies Reason For Referral No Information Medications Medication SIG (Take, Route, Frequency, Duration) Notes Start Date End Date Status Rosuvastatin Calcium 40 MG Tablet TAKE 1 TABLET BY MOUTH EVERY DAY Oral; Duration: 30 Active Lisinopril-hydroCHLOROthiaz pino 20-25 MG Tablet TAKE 1 TABLET BY MOUTH DAILY Oral; Duration: 30 Active MiraLax (colon prep) 17 GM/SCOOP Powder mixed with Gatorade or Crystal Light Orally begin at 5:00 p.m. the day before the procedure; Duration: 1 day 09/13/2021 Active Immunizations Vaccine Route Administration Date Status Comme nts Influenza Unknown 07/26/2021 Administered Influenza Unknown 07/26/2021 Administered Social History Tobacco Use: Social History Observation Description Date Details (start date - stop date) Never Smoker NA - NA Social History Drugs/Alcohol: Social Info Question Answer Notes Alcohol Screen Did you have a drink containing alcohol in the past year? Yes How often did you have a drink containing alcohol in the past year? Never (0 point) How many drinks did you have on a typical day when you were drinking in the past year? 1 or 2 drinks (0 point) How often did you have 6 or more drinks on one occasion in the past year? 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 Problems Problem Type SNOMED Code ICD Code Onset Dates Problem Status W/U Status Risk Notes Problem Colon cancer screening (625774788) Colon cancer screening (Z12.11) Active confirmed Problem Pre-procedure evaluation check (714813539) Encounter for other preprocedural examination (Z01.818) Active confirmed Plan Of Treatment Future Test Test Name Order Date COLONOSCOPY 09/13/2021 Insurance Providers Payer Name Payer Address Payer Phone Subscriber Number Group Number Insured Name Patient Relationship to Insured Coverage Start Date Coverage End Date [facility] [address] [place] [phone] [id number] VU RAMIREZ Self - patient is the insured Medical (General) History Medical History History ICD Code hypertension hypercholesterolemia Acute axonal neuropathy,? 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 Surgical History Surgery Date(Month/Year) tubal ligation
[2025-09-06 09:28] LABS: Alanine Aminotransferase 33 U/L (0-31); Albumin Level 4.4 g/dL (3.5-5.0); Alkaline Phosphatase 66 U/L (39-117); Anion Gap 13 (12-20); Aspartate Amino Transferase 29 U/L (5-31); Blood Urea Nitrogen 15 mg/dL (9-16); Calcium 9.4 mg/dL (8.4-10.2); Carbon Dioxide 26 mmol/L (22-29); Chloride 106 mmol/L (96-108); Cholesterol 226 mg/dL (<200); Estimated Glomerular Filt Rate > 60; HDL Cholesterol 47 mg/dL (>40); Potassium 4.1 mmol/L (3.3-5.1); Sodium 141 mmol/L (135-145); Total Protein 7.3 g/dL (6.5-8.0); Triglycerides 216 mg/dL (<150)
[2025-09-06 09:34] LABS: Thyroid Stimulating Hormone 3.57 uIU/mL (0.32-4.0)
== END 2025-09-06 07:06 ==
LOC: HO.LAB 07:05
PROVIDERS: PCP Internal Medicine; Visit Provider Internal Medicine
DX: R74.01 Elevation of levels of liver transaminase levels (principal); G60.9 Hereditary and idiopathic neuropathy, unspecified; E78.00 Pure hypercholesterolemia, unspecified; G25.0 Essential tremor
CPT/HCPCS: 36415; 80053; 80061; 84443; 85025